=== PATIENT | female | born 1990 | race Caucasian/White ===

== ENCOUNTER 2022-09-10 13:06 | Emergency (ER) | payer OTHER ==
[~2022-09-10] VITALS: Ht 152.4 cm; Wt 67.1 kg
[2022-09-10] MEDS ORDERED: ONDANSETRON4 MG SL (15:38)
== END 2022-09-10 15:41 | disposition home or self-care (01) ==
LOC: ED 13:06
DX: S06.0X0A Concussion without loss of consciousness, initial encounter (principal); Z88.0 Allergy status to penicillin; Z91.012 Allergy to eggs; W22.8XXA Striking against or struck by other objects, initial encounter; Y93.89 Activity, other specified; Y92.89 Other specified places as the place of occurrence of the external cause; Y99.8 Other external cause status